=== PATIENT | male | born 1985 | race African-American/Black ===

== ENCOUNTER 2019-01-29 11:49 | Emergency (ER) | payer OTHER ==
[2019-01-29] MEDS ORDERED: LIDOCAINE 1% INJ-PF (10 MG/ML) 30 ML SDV INJ ONE (12:41)
[2019-01-29] MEDS ORDERED: DIPH/PERTUSS(ACELL)/TETANUS VAC/PF 0.5 ML SYR (>=10YO) IM ONE (12:41)
--- NOTE | 2019-01-29 12:44 | ER Document Report ---
ED Medical Screen (RME) - General Chief Complaint: Laceration Stated Complaint: THUMB LACERATION Time Seen by Provider: 01/29/19 12:36 TRAVEL OUTSIDE OF THE [place] IN LAST 30 DAYS: No - HPI Notes: 01/29/19 12:42 Patient is a 33-year-old male who presents emergency department complaining of right thumb laceration by a metal stud prior to arrival. Patient states that he has the bleeding under control and is still able to move his thumb. Unknown last tetanus. Denies [place], fever, neck pain, URI, CP, SOB, Abd pain, or rash. I have treated and performed a rapid initial assessment of this patient. A comp rehensive ED assessment and evaluation of the patient, analysis of test results and completion of medical decision making process will be conducted by additional ED providers. PHYSICAL EXAMINATION: GENERAL: Well-appearing, well-nourished and in no acute distress. A&Ox4. Answers questions appropriately. LUNGS: Breath sounds clear to auscultation bilaterally and equal. No wheezes rales or rhonchi. HEART: Regular rate and rhythm without murmurs, rubs, gallops. MS: Right thumb: there is a flap-laceration anteriorly. needs suture repair. N/V intact distal. No bony tenderness. FROM. Strength 5+/5. - Related Data Allergies/Adverse Reactions: No Known Allergies Allergy (Verified 01/29/19 11:50) Past Medical History - Social History Frequency of alcohol use: None Drug Abuse: Marijuana Renal/ Medical History: Denies: Hx Peritoneal Dialysis Physical Exam - Vital signs Vitals: Temp Pulse Resp BP Pulse Ox 98.0 F 72 16 143/94 H 100 01/29/19 12:08 01/29/19 12:08 01/29/19 12:08 01/29/19 12:08 01/29/19 12:08 Course - Vital Signs Vital signs: Temp Pulse Resp BP Pulse Ox 98.0 F 72 16 143/94 H 100 01/29/19 12:08 01/29/19 12:08 01/29/19 12:08 01/29/19 12:08 01/29/19 12:08
--- NOTE | 2019-01-29 14:02 | ER Document Report ---
ED General - General Chief Complaint: Laceration Stated Complaint: THUMB LACERATION Time Seen by Provider: 01/29/19 12:36 TRAVEL OUTSIDE OF THE [place] IN LAST 30 DAYS: No - HPI Notes: Patient is a 33-year-old male that presents to the emergency department for chief complaint of right thumb laceration. Patient is a just prior to arrival in the emergency room he was at work and cut his thumb on a steel beam. He states he ran his right hand across the being which is how the laceration occurred. He denied any direct blunt trauma. Patient denies any numbness or difficulty moving the thumb. He does not know when his last tetanus vaccine was. He has not taken any medicine for pain. Past Medical History: Negative Past Surgical History: Negative Social History: Reviewed in chart Family History: Reviewed and noncontributory for presenting illness Allergies: Reviewed, see documented allergy list. REVIEW OF SYSTEMS: CONSTITUTIONAL : No fever No chills No diaphoresis No recent illness EENT: No vision changes No congestion No sore throat CARDIOVASCULAR: No chest pain No palpitations RESPIRATORY: No shortness of breath No cough No difficulty breathing GASTROINTESTINAL: No abdominal pain No nausea No vomiting No diarrhea GENITOURINARY: No dysuria No hematuria No difficulty urinating MUSCULOSKELETAL: No back pain No leg pain No arm pain SKIN: No rashes Right thumb laceration LYMPHATIC: No swollen, enlarged glands. NEUROLOGICAL: No lightheadedness No headache No weakness No paresthesias PSYCHIATRIC: No anxiety No depression PHYSICAL EXAMINATION: Vital signs reviewed, nursing noted reviewed. GENERAL: Well-appearing, well-nourished and in no acute distress. HEAD: Atraumatic, normocephalic. EYES: Eyes appear normal, extraocular movements intact, sclera anicteric, conjunctiva are normal. ENT: nares patent, oropharynx clear without exudates. Moist mucous membranes. NECK: Normal range of motion, supple without lymphadenopathy LUNGS: Breath sounds clear to auscultation bilaterally and equal. No wheezes rales or rhonchi. HEART: Regular rate and rhythm without murmurs ABDOMEN: Soft, nontender, normoactive bowel sounds. No rebound, guarding, or rigidity. No masses appreciated. EXTREMITIES: No bony tenderness or deformity to the right thumb, normal strength with flexion extension, nontender, good range of motion, no pitting or edema. NEUROLOGICAL: No focal neurological deficits. Moves all extremities spontaneously Motor and sensory grossly intact on exam. PSYCH: Normal mood, normal affect. SKIN: Warm, Dry, normal turgor, 2.8 cm flap laceration to palmar surface of right thumb overlying the PIP joint with minimal bleeding - Related Data Allergies/Adverse Reactions: No Known Allergies Allergy (Verified 01/29/19 11:50) Past Medical History - Social History Smoking Status: Current Every Day Smoker Frequency of alcohol use: None Drug Abuse: Marijuana Family History: Reviewed & Not Pertinent Patient has suicidal ideation: No Patient has homicidal ideation: No Renal/ Medical History: Denies: Hx Peritoneal Dialysis Physical Exam - Vital signs Vitals: Temp Pulse Resp BP Pulse Ox 98.0 F 72 16 143/94 H 100 01/29/19 12:08 01/29/19 12:08 01/29/19 12:08 01/29/19 12:08 01/29/19 12:08 Course - Re-evaluation Re-evalutation: 01/29/19 14:00 Vitals reviewed. Nursing notes reviewed. Patient's laceration was repaired. His tetanus vaccine was updated. He was placed in a thumb splint for immobility. He has no bony tenderness or history of crush injury and wound was explored through a bloodless field. There is no bony involvement and x-ray not currently indicated. There does not appear to be any tendinous involvement. He was counseled on wound care and follow-up. He is stable at discharge. - Vital Signs Vital signs: Temp Pulse Resp BP Pulse Ox 98.0 F 72 16 143/94 H 100 01/29/19 12:08 01/29/19 12:08 01/29/19 12:08 01/29/19 12:08 01/29/19 12:08 Procedures - Immobilization Right Finger Time completed: 14: - Right thumb splint Immobilizer type: Finger splint (Static) Performed by: RN Post-Proc Neuro Vasc Exam: Normal Alignment checked and good: Yes - Laceration/Wound Repair Right Thumb Time completed: 14:01 Wound length (cm): 2.8 Wound's Depth, Shape: Flap Laceration pre-procedure: Sterile drapes applied, Shur-Clens applied Anesthetic type: 1% Lidocaine Volume Anesthetic (mLs): 3 - Digital block Wound explored: Clean, No foreign body removed Irrigated w/ Saline (mLs): 500 Wound Repaired With: Sutures Suture Size/Type: 4:0, Nylon Number of Sutures: 7 - Simple interrupted stitches Layer Closure?: No Post-procedure wound care: Sterile dressing applied, Splint applied Post-procedure NV exam normal: Yes Complications: No Notes: 01/29/19 14:02 Thumb tourniquet applied, wound explored through full range of motion in a bloodless field and no tendinous involvement visualized. I was able to see the flexor tendon. Discharge - Discharge Clinical Impression: Laceration of right thumb Qualifiers: Encounter type: initial encounter Damage to nail status: without damage Foreign body presence: without foreign body Qualified Code(s): S61.011A - Laceration without foreign body of right thumb without damage to nail, initial encounter Condition: Stable Disposition: HOME, SELF-CARE Instructions: Laceration Care (REPLACED BY [facility]), Tetanus Immunization Given (REPLACED BY [facility]) Additional Instructions: Please return to the emergency department if you have any worsening, or concern of your symptoms. Please return to the emergency department if you develop chest pain, difficulty breathing, severe abdominal pain, or ongoing vomiting. Please follow-up with your primary care physician in 2-3 days and any other recommended physicians. If prescribed, take all medications as directed. If you have any questions or concerns do not hesitate to return the emergency department for evaluation. Have your stitches removed in 10 days Referrals: [facility] [Provider Group] - 02/07/19
[2019-01-29 14:43] VITALS: BP 142/80
== END 2019-01-29 14:43 | disposition home or self-care (01) ==
LOC: ER 11:49
PROC: 0HQFXZZ Repair Right Hand Skin, External Approach (ICD-10-PCS; principal; 2019-01-29)
DX: S61.011A Laceration without foreign body of right thumb without damage to nail, initial encounter (principal); W45.8XXA Other foreign body or object entering through skin, initial encounter; F17.200 Nicotine dependence, unspecified, uncomplicated
CPT/HCPCS: 99282; 90471; 90715; 12002; J3490